=== PATIENT | female | born 1990 | race Caucasian/White ===

== ENCOUNTER 2016-11-01 15:14 | Emergency (ER) | payer MEDICAID ==
--- NOTE | 2016-11-01 15:38 | Emergency Department Record ---
History of Present Illness - General Chief Complaint: Abdominal Pain Stated Complaint: LOWER ABD PAIN Time Seen by Provider: 11/01/16 15:37 Source: Patient Mode of Arrival: Ambulatory Limitations: No limitations - History of Present Illness Initial Comments: The patient is here due to a 4 day hx of diffuse AP. The pain is mainly in the upper abdomen. It is a sharp stabbing pain that is worse whenever she extends her abdominal wall muscles. She did vomit once 2 days ago and possibly did have a bloody stool yesterday. The patient was seen in the ER at [facility] yesterday and had a full evaluation including an abdominal CT that was reported to be neg. Now due to still having the pain she decided to be seen here at [facility]. Her last menses was the of last month and she denies any dysuria or vaginal discharge or bleeding. MD Complaint: Abdominal pain Onset/Timin -: Days(s) Location: RLQ Radiation: Back Severity: Moderate Quality: Aching, Sharp, Stabbing Consistency: Constant Improves With: Nothing Worsens With: Nothing Associated Symptoms: Denies other symptoms - Related Data Previous Rx's Medication Instructions Recorded Doxycycline Monohydrate [Mondoxyne 100 mg PO BID #20 capsule 11/01/16 Nl] Metronidazole [Flagyl] 500 mg PO BID #20 tablet 11/01/16 Naproxen [Naprosyn] 250 mg PO BID #14 tablet 11/01/16 Allergies Allergy/AdvReac Type Severity Reaction Status Date / Time Penicillins Allergy HIVES Verified 11/01/16 15:36 adhesive tape AdvReac HYPERSENSIT Verified 11/01/16 15:36 IVITY Travel Screening - Travel/Exposure Within Last 30 Days Have you traveled within the last 30 days?: No - Travel/Exposure Within Last Year Have you traveled outside the [place] in the last year?: No - Additonal Travel Details Have you been exposed to anyone with a communicable illness?: No - Travel Symptoms Symptom Screening: None Review of Systems Constitutional: Denies: Chills, Fever Eyes: Denies: Eye discharge ENT: Denies: Congestion Respiratory: Denies: Cough, Dyspnea Past Medical History - SOCIAL HISTORY Smoking Status: Current every day smoker Alcohol Use: None Drug Use: None - RESPIRATORY Hx Bronchitis: Yes Hx Pneumonia: Yes - CARDIOVASCULAR Hx Cardio Disorders: No - NEURO Hx Headaches: Yes - GI Hx GI Disorders: No - Hx Renal Disease: Yes (failure during ) - ENDOCRINE Hx Diabetes: No Hx Thyroid Disease: No - PSYCH Hx Anxiety: Yes Hx Depression: Yes Comment:: bi-polar - HEMATOLOGY/ONCOLOGY Hx Anemia: Yes Hx Cancer: No Family Medical History Any Significant Family History?: Yes Hx Cancer: Grandparents Hx Diabetes: Father, Mother, Grandparents Hx Resp Disorders: Grandparents Physical Exam - General General Appearance: Alert, Oriented x3, Cooperative, No acute distress - Head Head exam: Atraumatic, Normocephalic, Normal inspection - Eye Eye exam: Normal appearance, PERRL - ENT Throat exam: Normal inspection. negative: Tonsillar erythema, Tonsillar exudate - Neck Neck exam: Normal inspection, Full ROM. negative: Tenderness - Respiratory Respiratory exam: Normal lung sounds bilaterally. negative: Respiratory distress - Cardiovascular Cardiovascular Exam: Regular rate, Normal rhythm, Normal heart sounds - GI/Abdominal GI/Abdominal exam: Soft, Tenderness (There is diffuse upper abdominal tenderness which is much worse with extending her legs or spine. She feels much better with her legs curled up and flexed.). negative: Distended, Rigid - exam: Adnexal tenderness (L), Adnexal tenderness (R), cervical motion tenderness (very mild.), Normal external exam, Normal speculum exam. negative: Abnormal external exam, Normal bimanual exam, Vaginal bleeding, Vaginal discharge, Vaginal erythema - Extremities Extremities exam: Normal inspection, Full ROM, Normal capillary refill. negative: Tenderness - Neurological Neurological exam: Normal gait. negative: Abnormal gait Course Vital Signs 11/01/16 15:24 Temperature 98.5 F Pulse Rate 86 Respiratory 12 Rate Blood Pressure 135/78 Pulse Ox 98 - Reevaluation(s) Reevaluation #1: The patient is doing better. She is up walking with MUCH less difficulty. 11/01/16 17:00 Reevaluation #2: The patient is doing better. On exam her abdomen is very soft with no specific tenderness to palpation. I explained to the patient the lab tests are all WNL. We will treat the patient for an infection in her pelvis and have her F/U with her PCP tomorrow. 11/01/16 18:19 Medical Decision Making - Data Complexity MDM Data: Labs Ordered and/or Reviewed, X-Ray Ordered and/or Reviewed - Lab Data Result diagrams: 11/01/16 15:50 11/01/16 15:50 - Radiology Data Radiology results: Report reviewed (Pelvic US: Neg.) Disposition Disposition: Discharge Clinical Impression: Abdominal pain Qualifiers: Abdominal location: lower abdomen, unspecified Qualified Code(s): R10.30 - Lower abdominal pain, unspecified Disposition: Home, Self-Care Condition: (2) Stable Instructions: Abdominal Pain (ED) Additional Instructions: Please take the 2 Abx's as directed. Please take the pain medicine as directed and rest. Please see your PCP tomorrow for recheck if not better and return to the ER for any increased pain, fever, or vomiting. Prescriptions: Metronidazole [Flagyl] 500 mg PO BID #20 tablet Doxycycline Monohydrate [Mondoxyne Nl] 100 mg PO BID #20 capsule Naproxen [Naprosyn] 250 mg PO BID #14 tablet Forms: Patient Portal Access Time of Disposition: 18:28
[2016-11-01] MEDS ORDERED: 0.9 % SODIUM CHLORIDE 1,000 ML BAG IV ONE (15:41)
[2016-11-01] MEDS ORDERED: ONDANSETRON HCL IV 4 MG/2 ML VIAL IV ONE (15:41)
[2016-11-01] MEDS ORDERED: KETOROLAC 30 MG/ML VIAL IVP ONE ×2 (15:53→18:22)
[2016-11-01 16:06] LABS: BASO % 0.3 % (0-6); GRAN % 55.9 % (47-80); HEMATOCRIT 44.3 % (35.0-47.0); HEMOGLOBIN 14.9 gm/dl (11.6-16.0); LYMPH % 31.6 % (16-45); MEAN CELL VOLUME 84.5 fl (81-97); MEAN CORPUSCULAR HEMOGLOBIN 28.4 pg (27-33); MEAN CORPUSCULAR HGB CONC 33.6 g/dl (32-36); MEAN PLATELET VOLUME 10.1 fl (7.4-10.4); MONO % 8.2 % (0-9); PLATELET COUNT 239 K/uL (130-400); RED BLOOD COUNT 5.24 M/uL (3.80-5.40); RED CELL DISTRIBUTION WIDTH 14.2 % (11.5-14.5); WHITE BLOOD COUNT W/O DIFF 6.8 K/uL (4.2-12.2)
[2016-11-01 16:30] LABS: ALBUMIN 4.5 gm/dL (3.5-5.0); ALKALINE PHOSPHATASE 70 U/L (38-126); ALT/SGPT 24 U/L (9-52); ANION GAP 13.5 (7-16); AST/SGOT 33 U/L (14-36); BILIRUBIN,TOTAL 0.41 mg/dL (0.2-1.3); BLOOD UREA NITROGEN 8 mg/dL (7-17); CARBON DIOXIDE 23.5 mmol/L (22-30); CREATININE 0.7 mg/dL (0.52-1.04); EST GLOMERULAR FILTRATION RATE > 60 ml/min; GLUCOSE,RANDOM 123 mg/dL (70-110); LIPASE 77 U/L (23-300); TOTAL PROTEIN 7.8 gm/dL (6.3-8.2)
[2016-11-01 17:29] LABS: URINE COLOR YELLOW
[2016-11-01 17:30] LABS: URINE APPEARANCE SL CLOUDY; URINE BILIRUBIN NEGATIVE (NEGATIVE); URINE BLOOD SMALL (NEGATIVE); URINE GLUCOSE (UA) NEGATIVE (NEGATIVE); URINE KETONE NEGATIVE (NEGATIVE); URINE LEUKOCYTE ESTERASE NEGATIVE (NEGATIVE); URINE NITRITE POSITIVE (NEGATIVE); URINE PROTEIN NEGATIVE (NEGATIVE); URINE UROBILINOGEN 0.2 E.U./dL (0.20 - 1.00)
[2016-11-01] MEDS ORDERED: HYDROMORPHONE HCL 1 MG/ML CPJ IVP ONE (17:31)
[2016-11-01 17:36] LABS: URINE BACTERIA 4+; URINE EPITHELIAL CELLS 0 - 2 (FEW); URINE WBC 0 - 2 (0-2/hpf)
[2016-11-01] MEDS ORDERED: CEFTRIAXONE 250 MG VIAL IM ONE (17:39)
[2016-11-02 23:36] LABS: GC SPECIMEN TYPE Vaginal (())
== END 2016-11-01 18:53 | disposition home or self-care (01) ==
LOC: ER 15:14
DX: R10.10 Upper abdominal pain, unspecified (principal)
CPT/HCPCS: 99284 ×2; 96376; 96374; 96372; 96375; 83690; 85025; 80076; 80048; 81001; 81025; 76856; 76830; Q0111; J1885; J2405; J0696; J1170; 87210; J7030